=== PATIENT | female | born 1970 | race Caucasian/White ===

== ENCOUNTER → 2016-12-18 | Day surgery (SDC) | payer BC ==
[~2016-12-18] VITALS: Ht 162.6 cm; Wt 70.0 kg
[~2016-12-18] MED LIST: ASPIRIN LO-DOSE81 MG PO; CARAFATE1 GM PO; NORCO 5-325 TA1 EACH PO; TOPROL XL50 MG PO
--- NOTE | ~2016-12-18 | OR ---
PATIENT'S NAME: CARLOS ELAM [facility] AGE: 46 Y [address] ROOM: [place] [address] [place]ATION: [facility] [place] [facility] [place] DATE: 12/18/2016 OR/Procedure Report DISCHARGE DATE: FAMILY PHYSICIAN: Trevor Mathis MD ATTENDING PHYSICIAN: Jamar Warren SURGEON: Jamar Warren MD DESIGN PRINTING MACHINE SET UP OPERATOR: Beronica Martinez PA-C DATE OF PROCEDURE: 12/18/2016 PREOPERATIVE DIAGNOSES: 1. Cholecystitis. 2. Cholelithiasis. POSTOPERATIVE DIAGNOSES: 1. Cholecystitis. 2. Cholelithiasis. PROCEDURE PERFORMED: Laparoscopic cholecystectomy. ANESTHESIA: General with 30 mL of 0.5% Marcaine. SPECIMENS: Gallbladder with stones. ESTIMATED BLOOD LOSS: Less than 10 mL. SPECIMEN: Gallbladder stones. INDICATIONS: The patient is a 46-year-old young lady with a 2-week history of biliary colic symptoms getting worse in the last 5 days, and she has ultrasound showing cholelithiasis, contracted gallbladder, and some mild thickening. Her liver function tests were normal. We talked about the gallbladder removal, and due to the persistent symptoms and inability eat, she wishes to proceed today. DESCRIPTION OF PROCEDURE: After informed consent, the patient was taken to the operating room. After general endotracheal anesthesia, the patient's abdomen was prepped and draped into a sterile field. Local anesthetic was infiltrated prior to each incision. The first one was made below the umbilicus, was carried down to identify the anterior fascia through which a Veress needle was inserted. Pneumoperitoneum created. An 11-mm trocar and laparoscope were inserted under direct vision. The remaining trocars were placed. The gallbladder was pale and distended. It was not contracted at this time. We stripped down a lot of fatty adhesions of the hepatoduodenal ligament in order to expose it. In order to increase our critical view of safety, we took down the lateral peritoneal reflection of the gallbladder to PATIENT'S NAME: CARLOS ELAM [facility] AGE: 46 Y [address] ROOM: [place] [address] LOCATION: [facility] [place] [facility] [place] ADMIT DATE: 12/18/2016 OR/Procedure Report DISCHARGE DATE: FAMILY PHYSICIAN: Trevor Mathis MD ATTENDING PHYSICIAN: Jamar Warren the liver. We then opened up the triangle. We isolated out a small cystic duct, clipped it x4 and divided. The cystic artery was clipped and divided. The gallbladder was removed from the liver bed, placed into an EndoCatch bag, and brought out through the umbilical incision. Irrigation of right upper quadrant was performed until clear. We then used the Endo Stitch to close the subxiphoid fascia defect. We released the remaining trocars and pneumoperitoneum, closed the umbilical fascial defect with 0 Vicryl. Skin incisions were closed with subcuticular 4-0 Vicryl. Steri-Strips and sterile dressings applied. The patient tolerated the procedure well and transferred to the recovery room in stable condition. JAMAR WARREN MD WTS/modl /[id number] d: 12/18/16 1858 t: 12/27/16 1610, OPERATIVE SUMMARY
== END | disposition disaster alternative care site (69) ==
LOC: GSDC 11:23 → GPOC 12-20 11:30
PROC: 0FT44ZZ Resection of Gallbladder, Percutaneous Endoscopic Approach (ICD-10-PCS; principal; 2016-12-18)
DX: K81.1 Chronic cholecystitis (principal); Z88.8 Allergy status to other drugs, medicaments and biological substances; Z90.710 Acquired absence of both cervix and uterus; Z79.899 Other long term (current) drug therapy; Z98.890 Other specified postprocedural states
CPT/HCPCS: J0694; J1100; J2405; J3010; J7120